=== PATIENT | male | born 1960 | race Caucasian/White ===

== ENCOUNTER → 2018-10-21 | Outpatient (CLI) | payer OTHER | LOC: BMCIMAGING 08:02 | PROVIDERS: ATTEND Internal Medicine Gastroenterology | DX: K82.9 Disease of gallbladder, unspecified (principal); R94.5 Abnormal results of liver function studies ==

== ENCOUNTER 2018-10-27 09:03 | Outpatient (CLI) | payer OTHER ==
[2018-10-27] MEDS ORDERED: fentaNYL 100 MCG/2 ML INJ IVP PRN (09:07)
[2018-10-27] MEDS ORDERED: MIDAZOLAM 2 MG/2 ML VIAL IVP PRN (09:07)
[2018-10-27] MEDS ORDERED: FLUMAZENIL 0.5 MG/5 ML MDV IVP PRN (09:07)
[2018-10-27] MEDS ORDERED: NALOXONE HCL 0.4 MG/ML INJ IVP PRN (09:07)
[2018-10-27] MEDS ORDERED: MEPERIDINE 25 MG/ML SYR IVP PRN (09:07)
[2018-10-27] MEDS ORDERED: NS 1,000 ML IV SCH (09:15)
[2018-10-27] MEDS ORDERED: fentaNYL 100 MCG/2 ML INJ ONE (09:16)
[2018-10-27] MEDS ORDERED: NALOXONE HCL 0.4 MG/ML INJ ONE (09:16)
[2018-10-27] MEDS ORDERED: FLUMAZENIL 0.5 MG/5 ML MDV IVP ONE (09:16)
[2018-10-27] MEDS ORDERED: MIDAZOLAM 2 MG/2 ML VIAL ONE (09:17)
[2018-10-27] MEDS ORDERED: LIDOCAINE 1% 300 MG/30 ML SDV ONE (10:00)
[2018-10-27 10:12] LABS: PLATELET COUNT 285 10^3/uL (150-400)
[2018-10-27 10:24] LABS: INR 0.85 (0.83-1.16); PROTIME(PATIENT) 11.3 SEC (12.0-15.0)
--- NOTE | 2018-10-27 11:14 | PDRADPRE ---
Radiology History & Physical Indication for procedure: renal failure (Plan for US guided renal biopsy) Home medications: Furosemide 20 mg PO DAILY 10/24/18 [Last Taken Unknown] Prilosec 20 mg PO BID 10/24/18 [Last Taken Unknown] Allergies/Adverse Reactions: codeine Allergy (Verified 10/24/18 16:47) Vomiting Mental status: A&Ox3 Heart exam: regular rate and rhythm Lungs exam: clear to auscultation Mallampati Score: Class 2
[2018-10-27] MEDS ORDERED: ACETAMINOPHEN 325 MG TAB PO PRN (11:15)
[2018-10-27] MEDS ORDERED: OXYCODONE/APAP 5/325 TAB PO PRN (11:15)
[2018-10-27] MEDS ORDERED: ONDANSETRON 4 MG/2 ML VIAL IVP PRN (11:15)
--- NOTE | 2018-10-27 11:15 | PDRADPN ---
Radiology Procedure Note Date of Procedure: 10/27/18 Radiologist: Diego Rogers Anesthesia: IV Sedation Pre-op Diagnosis: Proteinuria Post-op Diagnosis: Proteinuria Indication: Proteinuria Procedure: US guided renal biopsy Finding(s): Three 18 ga core specimens without hemorrhage on US. Inf/Abcess present in the surg proc area at time of surgery?: No
--- NOTE | 2018-10-27 11:15 | PDPROPOC ---
Sedation Plan of Care Sedation Plan of Care: vital signs stable, mental status noted, patient educated of risks, benefits, alternatives, patient can tolerate sedation ASA Classification: ASA 2 Planned drugs: fentanyl, midazolam Mallampati Score: Class 1 Mallampati Reference Image: Patient passed 3-3-2 rule?: Yes
[2018-10-27] MEDS ORDERED: ACETAMINOPHEN 325 MG TAB PO ONE (14:45)
[2018-10-27 17:50] VITALS: BP 121/81
== END 2018-10-27 17:30 | disposition home or self-care (01) ==
LOC: FIMAGING 09:03
PROC: 0TB13ZX Excision of Left Kidney, Percutaneous Approach, Diagnostic (ICD-10-PCS; principal; 2018-10-27 14:23)
DX: E85.89 Other amyloidosis (principal); N26.9 Renal sclerosis, unspecified
CPT/HCPCS: 88305-90; 88313-90; 88346-90; 88348-90; J2250; J2310; J3010